=== PATIENT | female | born 2000 | race Caucasian/White ===

== ENCOUNTER 2020-06-09 00:50 | Emergency (ER) | payer OTHER ==
--- NOTE | 2020-06-09 01:24 | XR ---
EXAMINATION TYPE: XR knee complete RT DATE OF EXAM: 06/09/2020 COMPARISON: NONE HISTORY: Knee pain TECHNIQUE: 3 views FINDINGS: I see no fracture nor dislocation. Joint spaces are normal. There is no sign of knee joint effusion. IMPRESSION: Negative right knee exam. No fracture.
--- NOTE | 2020-06-09 01:49 | ED ---
Lower Extremity Injury HPI - General Chief Complaint: Extremity Injury, Lower Stated Complaint: Rt knee injury Time Seen by Provider: 06/09/20 01:09 Source: patient, family Mode of arrival: wheelchair Limitations: no limitations - History of Present Illness Initial Comments: 19-year-old female patient presents to the emergency department today for evalua tion of right knee injury. Patient states that she was wrestling with a family member when she twisted the knee. Patient states she did hear a popping sound and had immediate pain to the knee. Patient states that she is having pain to the central anterior right knee. She denies numbness or tingling to the leg. Denies previous injury to the knee. Patient denies any other injury sustained during the wrestling episode. Patient denies any headache, neck pain, back pain, chest pain, shortness of breath, dizziness, weakness, abdominal pain, nausea, vomiting, or difficulties with bowel movements or urination. - Related Data Previous Rx's Medication Instructions Recorded Ibuprofen [Motrin] 600 mg PO Q8HR PRN #30 tab 06/09/20 Allergies Allergy/AdvReac Type Severity Reaction Status Date / Time No Known Allergies Allergy Verified 06/09/20 00:57 Review of Systems ROS Statement: Those systems with pertinent positive or pertinent negative responses have been documented in the HPI. ROS Other: All systems not noted in ROS Statement are negative. Past Medical History Past Medical History: No Reported History History of Any Multi-Drug Resistant Organisms: None Reported Past Surgical History: No Surgical Hx Reported Past Psychological History: No Psychological Hx Reported Smoking Status: Current every day smoker Past Alcohol Use History: None Reported Past Drug Use History: None Reported General Exam Limitations: no limitations General appearance: alert, in no apparent distress, other (This is a well- developed, well-nourished adult female patient in no acute distress. Vital si gns upon presentation are temperature 98.1F, pulse 87, respirations 18, blood pressure 126/79, pulse ox 99% on room air.) Respiratory exam: Present: normal lung sounds bilaterally. Absent: respiratory distress, wheezes, rales, rhonchi, stridor Cardiovascular Exam: Present: regular rate, normal rhythm, normal heart sounds. Absent: systolic murmur, diastolic murmur, rubs, gallop, clicks Extremities exam: Present: normal inspection, full ROM, tenderness (Anterior right knee), normal capillary refill, other (No pain or laxity with valgus or varus maneuvers. Skin to the right leg is pink, warm, dry. Cap refill less than 3 seconds. Pedal and posttibial pulses are 2+ and equal bilaterally). Absent: pedal edema, joint swelling, calf tenderness Neurological exam: Present: alert, oriented X3, CN II-XII intact Psychiatric exam: Present: normal affect, normal mood Skin exam: Present: warm, dry, intact, normal color. Absent: rash Course Vital Signs 06/09/20 06/09/20 00:51 02:02 Temperature 98.1 F 98 F Pulse Rate 87 77 Respiratory 18 16 Rate Blood Pressure 126/79 134/74 O2 Sat by Pulse 99 97 Oximetry Medical Decision Making - Medical Decision Making 19-year-old female patient presents to the emergency department today for evaluation of right knee pain. Physical examination did reveal tenderness over the anterior knee. There is no laxity with valgus or varus maneuvers. X-ray was negative. Patient was placed in an Donte wrap. To be discharged. The primary care physician for recheck in 1-2 days. She is given ibuprofen for pain control. Return parameters were discussed in detail. She verbalizes understanding and agrees with this plan. - Radiology Data Radiology results: report reviewed, image reviewed 3 views of the right knee are obtained. Report was reviewed in its entirety. Impression by Dr. Buckley shows negative right knee exam. No fracture. Disposition Clinical Impression: Strain of right knee Disposition: HOME SELF-CARE Condition: Good Instructions (If sedation given, give patient instructions): Knee Sprain (ED) Additional Instructions: Rest, elevate, ice the knee. Use Donte wrap for comfort and support. HER primary care physician for recheck in 1-2 days. Return to the emergency department immediately for any new, worsening, or concerning symptoms. Prescriptions: Ibuprofen [Motrin] 600 mg PO Q8HR PRN #30 tab PRN Reason: Pain Is patient prescribed a controlled substance at d/c from ED?: No Referrals: Artur Griffith MD [STAFF PHYSICIAN] - 1-2 days Time of Disposition: 01:49
[2020-06-09] MEDS ORDERED: KETOROLAC 15 MG/ML 1 ML VIAL IM STA (01:54)
[2020-06-09 02:06] VITALS: BP 134/74; PULSE 77; RESP 16; TEMP 98
== END 2020-06-09 02:06 | disposition home or self-care (01) ==
LOC: EC 00:50
DX: S86.911A Strain of unspecified muscle(s) and tendon(s) at lower leg level, right leg, initial encounter (principal); F17.200 Nicotine dependence, unspecified, uncomplicated; X50.1XXA Overexertion from prolonged static or awkward postures, initial encounter; Y93.72 Activity, wrestling
CPT/HCPCS: 73562; 96372; 99283; J1885